=== PATIENT | male | born 1995 | race Caucasian/White ===

== ENCOUNTER 2016-09-22 15:26 | Observation (INO) | payer MEDICAID ==
--- NOTE | 2016-09-22 15:41 | EDPHY ---
H & P Stated Complaint: high creat/felt r/t lithium/stopped med/needs psych monitoring Time Seen by Provider: 09/22/16 15:41 - Personal History Current Tetanus/Diphtheria Vaccine: Yes - Medical/Surgical History Hx Asthma: No Hx Chronic Respiratory Disease: No Hx Diabetes: No Hx Cardiac Disease: No Hx Renal Disease: No Hx Cirrhosis: No Hx Alcoholism: No Hx HIV/AIDS: No Hx Splenectomy or Spleen Trauma: No Other PMH: psych/aspergers - Social History Smoking Status: Current every day smoker Constitutional: Initial Vital Signs Temperature (C) 36.8 C 09/22/16 15:36 Heart Rate 72 09/22/16 15:36 Respiratory Rate 17 09/22/16 15:36 Blood Pressure 117/78 09/22/16 15:36 O2 Sat (%) 97 09/22/16 15:36 O2 Delivery Mode Room Air Allergies/Adverse Reactions: No Known Allergies Allergy (Unverified 09/22/16 15:34) Home Medications: Medication Instructions Recorded Amiloride 09/22/16 GABAPENTIN 09/22/16 KLONOPIN 09/22/16 LaMICtal 09/22/16 Levothyroxine 09/22/16 Sertraline HCl 09/22/16 Medical Decision Making ED Course/Re-evaluation: CHIEF COMPLAINT: Kidney dysfunction secondary to lithium use. HISTORY OF PRESENT ILLNESS: This patient is a 21 year old male referred to the Emergency Department by Dr. Clarence Nelson, the patient's PCP, for concern of kidney dysfunction as evidenced in recent labs secondary to history of [place] use for treatment of suspected bipolar disorder. He stopped taking [place] yesterday and now reports anxiety and shortness of breath. He denies depression or any suicidal or homicidal ideation. He denies any urinary complaints. His current psychiatrist suspects that the patient does not actually have bipolar disorder and is therefore less concerned about possible exacerbation of psychiatric symptoms. Medical history also includes Asperger syndrome. REVIEW OF SYSTEMS: A 10 point review of systems was performed and is negative with the exception of the elements mentioned in the history of present illness. PHYSICAL EXAM: HR 72, BP 117/78, O2 Sat 97%, RR 17. Temp noted General Appearance: Alert, well hydrated, appropriate, and non-toxic appearing. Head: Atraumatic without scalp tenderness or obvious injury Eyes: Pupils equal, round, reactive to light and accommodation, EOMI, no trauma , no injection. Ears: Clear bilaterally, no perforation, normal landmarks Nose: Atraumatic, no rhinorrhea, clear. Throat: There is no erythema or exudates, no lesions, normal tonsils, mucus membranes moist. Neck: Supple, 2+ carotid upstroke, nontender, no lymphadenopathy. Respiratory: No retractions, no distress, no wheezes, and no accessory muscle use. Lungs are clear to auscultation bilaterally. Cardiovascular: Regular rate and rhythm, no murmurs, rubs, or gallops. Bilateral carotid, radial, dorsalis pedis, and posterior tibial pulses intact. Good capillary refill all extremities. Gastrointestinal: Abdomen is soft, nontender, non-distended, no masses, no rebound, no guarding, no peritoneal signs. Musculoskeletal: Normal active ROM of all extremities, atraumatic. Neurological: Alert, appropriate, and interactive. The patient has normal DTRs and non-focal cranial nerves, motor, sensory, and cerebellar exam. Skin: No rashes, good turgor, no nodules on palpation. Past medical history: Asperger syndrome. Suspected bipolar disorder. Past surgical history: Denies. Family history: Non-contributory. Social history: Mom and dad at bedside. DIFFERENTIAL DIAGNOSIS: Differential diagnosis for the patient's kidney dysfunction includes but is not limited to: lithium toxicity. MEDICAL DECISION MAKING: This patient's case was discussed with me by referring physician, Dr. Nelson, who reports evident kidney dysfunction indicated in labs obtained last week secondary to lithium use. Apparently, messages were left at home for approximately one week requesting that he abstain from lithium use but the patient just received these yesterday. He presents with complaints of anxiety but no additional concerns. Will proceed with labs to evaluate kidney function. Labs reviewed: Creatinine elevated at 2.4 Plan for admission. His electrolytes are normal. 170: Consultation with Dr. Conley, college admissions counselor, who recommends that the patient be admitted for kidney function monitoring and given 150ml IV NS every hour upon admission. I discussed this recommendation with the patient and his parents who are agreeable to this plan. 1717: Consultation with Dr. Nawaf Cain, hospitalist, who accepts admission to [facility]. - Data Points Laboratory Results: Laboratory Results 09/22/16 16:04 09/22/16 16:04 02/07/17 16:04 WBC 5.30 10^3/uL (3.80-9.50) RBC 3.78 L 10^6/uL (4.40-6.38) Hgb 11.6 L g/dL (13.7-17.5) Hct 32.4 L % (40.0-51.0) MCV 85.7 fL (81.5-99.8) MCH 30.7 pg (27.9-34.1) MCHC 35.8 g/dL (32.4-36.7) RDW 12.7 % (11.5-15.2) Plt Count 169 10^3/uL (150-400) MPV 11.1 fL (8.7-11.7) Neut % (Auto) 64.2 % (39.3-74.2) Lymph % (Auto) 25.3 % (15.0-45.0) Gentry % (Auto) 5.7 % (4.5-13.0) Eos % (Auto) 4.2 % (0.6-7.6) Baso % (Auto) 0.4 % (0.3-1.7) Nucleat RBC Rel Count 0.0 % (0.0-0.2) Absolute Neuts (auto) 3.41 10^3/uL (1.70-6.50) Absolute Lymphs (auto) 1.34 10^3/uL (1.00-3.00) Absolute Monos (auto) 0.30 10^3/uL (0.30-0.80) Absolute Eos (auto) 0.22 10^3/uL (0.03-0.40) Absolute Basos (auto) 0.02 10^3/uL (0.02-0.10) Absolute Nucleated RBC 0.00 10^3/uL (0-0.01) Immature Gran % 0.2 % (0.0-1.1) Immature Gran # 0.01 10^3/uL (0.00-0.10) Sodium 140 mEq/L (134-144) Potassium 4.3 mEq/L (3.5-5.2) Chloride 107 mEq/L (97-110) Carbon Dioxide 22 mEq/l (22-31) Anion Gap 11 mEq/L (8-16) BUN 26 H mg/dL (7-23) Creatinine 2.4 H mg/dL (0.7-1.3) Estimated GFR 34 Glucose 111 H mg/dL (70-100) Calcium 9.5 mg/dL (8.5-10.4) Total Bilirubin 0.4 mg/dL (0.1-1.4) Conjugated Bilirubin 0.4 mg/dL (0.0-0.5) Unconjugated Bilirubin 0.0 mg/dL (0.0-1.1) AST 19 IU/L (17-59) ALT 30 IU/L (21-72) Alkaline Phosphatase 104 IU/L (38-126) Total Protein 6.5 g/dL (6.3-8.2) Albumin 4.4 g/dL (3.5-5.0) Medications Given: Discontinued Medications Sodium Chloride (Ns) 1,000 mls @ 0 mls/hr IV ONCE ONE PRN Reason: Wide Open Stop: 09/22/16 15:49 Last Admin: 09/22/16 16:08 Dose: 1,000 mls Departure - Departure Disposition: [facility] Inpatient Acute Clinical Impression: Acute kidney injury Condition: Fair Referrals: CLARENCE NELSON [Primary Care Provider] - As per Instructions Report Scribed for: Javon Byrne Report Scribed by: April Lamas Date of Report: 09/22/16 Time of Report: 15:42
[2016-09-22] MEDS ORDERED: NS 1,000 ML IV ONE ×2 (15:48→17:38)
[2016-09-22 16:17] LABS: % IMMATURE GRANULYOCYTES 0.2 % (0.0-1.1); ABSOLUTE IMMATURE GRANULOCYTES 0.01 10^3/uL (0.00-0.10); ADD DIFF? NO; ADD MORPH? NO; ADD SCAN? NO; ATYPICAL LYMPHOCYTE FLAG 0 (0-99); FRAGMENT RBC FLAG 0 (0-99); HEMATOCRIT 32.4 % (40.0-51.0); HEMOGLOBIN 11.6 g/dL (13.7-17.5); LEFT SHIFT FLG 0 (0-99); LIPEMIA HEMOLYSIS FLAG 90 (0-99); MEAN CELL HEMOGLOBIN 30.7 pg (27.9-34.1); MEAN CELL HEMOGLOBIN CONCENTR. 35.8 g/dL (32.4-36.7); MEAN CELL VOLUME 85.7 fL (81.5-99.8); MEAN PLATELET VOLUME 11.1 fL (8.7-11.7); PLATELET CLUMPS FLAG 10 (0-99); PLATELET COUNT 169 10^3/uL (150-400); RED BLOOD CELL COUNT 3.78 10^6/uL (4.40-6.38); RED CELL DISTRIBUTION WIDTH 12.7 % (11.5-15.2)
[2016-09-22 16:29] LABS: ALANINE AMINOTRANSFERASE 30 IU/L (21-72); ALBUMIN 4.4 g/dL (3.5-5.0); ALKALINE PHOSPHATASE 104 IU/L (38-126); ANION GAP 11 mEq/L (8-16); ASPARTATE AMINOTRANSFERASE 19 IU/L (17-59); BILIRUBIN,TOTAL 0.4 mg/dL (0.1-1.4); BILIRUBIN-CONJUGATED 0.4 mg/dL (0.0-0.5); CALCIUM 9.5 mg/dL (8.5-10.4); CARBON DIOXIDE 22 mEq/l (22-31); CHLORIDE 107 mEq/L (97-110); CREATININE 2.4 mg/dL (0.7-1.3); GLOMERULAR FILTRATION RATE 34; GLUCOSE 111 mg/dL (70-100); POTASSIUM 4.3 mEq/L (3.5-5.2); SODIUM 140 mEq/L (134-144); TOTAL PROTEIN 6.5 g/dL (6.3-8.2)
[2016-09-22 17:44] VITALS: RESP 16
[2016-09-22 17:54] LABS: COLOR PALE YELLOW; LEUKOCYTE ESTERASE,URINE NEGATIVE (NEGATIVE); NITRITE,URINE NEGATIVE (NEGATIVE)
[2016-09-22] MEDS ORDERED: ONDANSETRON DISINTEGRATING 4 MG TAB PO PRN (18:07)
[2016-09-22] MEDS ORDERED: ACETAMINOPHEN 325 MG TAB PO PRN (18:07)
[2016-09-22] MEDS ORDERED: NS 1,000 ML IV SCH (18:15)
--- NOTE | 2016-09-22 18:57 | GHP ---
[f rep st] HISTORY AND PHYSICAL DATE OF ADMISSION: 09/22/2016 DATE OF EVALUATION: 09/22/2016 CHIEF COMPLAINT: Renal failure. HISTORY OF PRESENT ILLNESS: This is a 21-year-old man with autism and bipolar who presents with renal failure. He has been on lithium for years. Apparently his psychiatrist has been following his kidney function for some time. I reviewed his chart available from [facility] and creatinine was 1.9 back in December of 2015. Apparently he had labs drawn last week. Psychiatrist had been leaving messages for him to stop taking his lithium; however, he just got those 2 days ago. He has since quit, has missed his last 4 doses. He tells me that since he stopped taking lithium he has not been as thirsty. He has not been eating and drinking as well. He has still been urinating; however, somewhat less. He has a metallic taste in his mouth. He had plans for outpatient upper and lower endoscopy due to anemia. These are , at this point, being canceled by his mother. He has been seeing Dr. Hamm. Dr. Hamm, as an outpatient, had planned to do urine studies and get a renal ultrasound. He had been started on amiloride by Dr. Hamm. He has not actually started this and has not taken any of these doses yet. PAST MEDICAL/SURGICAL HISTORY: 1. Autism. 2. Bipolar. MEDICATIONS: Please see medication reconciliation. ALLERGIES: None. FAMILY HISTORY: No autism. SOCIAL HISTORY: Does not drink. He does smoke. He lives with his parents. REVIEW OF SYSTEMS: A 10-point review of systems is conducted and is negative except per HPI. PHYSICAL EXAM: VITAL SIGNS: Blood pressure 139/76, heart rate 66, respiration rate 16, saturating 96% on room air, temperature is 36.8. GENERAL: The patient is pleasant, slightly withdrawn man who is lying in bed, appears comfortable. HEENT: Shows him to be normocephalic, atraumatic. CARDIOVASCULAR : Regular rate and rhythm. No murmurs, rubs, or gallops. PULMONARY: Lungs clear bilaterally. ABDOMINAL: Soft, nontender. No hepatosplenomegaly. No masses appreciated. SKIN: No rash. : No Clark. NEUROLOGIC: Exam shows him to be alert and oriented x3. He is moving all extremities. PSYCHIATRIC: Exam shows him to have a blunted affect. LABS: Hemoglobin is 11.6, BUN is 26, creatinine is 2.4. LFTs are normal. Urinalysis is negative. DATA: 1. I discussed this with Dr. Nawaf Cain. I will admit him to the [facility]. 2. I reviewed his chart, including old records from [facility]. IMPRESSION AND PLAN: 1. Renal failure, suspected due to lithium. I will get a renal ultrasound. Check a random protein and creatinine. Check mag and phos. Dr. Hamm has been consulted and recommends IV hydration overnight and he will consult in the morning. 2. Psychiatric issues including autism and bipolar. Psychiatrist did not feel that he needed any mood stabilizing replacement once stopping the lithium. I offered a psychiatric consult here; however, his parents would prefer that he continue to follow with Dr. Gupta for this. He may at some point need a Psychiatric consult but I will hold off for now. 3. Anemia. He has outpatient upper and lower endoscopies planed. Will hold off on further workup at this point. /[id number]/MODL MTDD
[2016-09-22] MEDS ORDERED: clonazePAM 0.5 MG TAB PO PRN (19:11)
--- NOTE | 2016-09-22 20:22 | US ---
Ultrasound Abdomen Retroperitoneum, Complete Clinical Indications: Renal failure. Comparison: None. Findings: The right kidney measures 10.8 x 5.8 x 6.7 cm. The left kidney measures 10.9 x 3.4 x 5.1 cm. Both kidneys demonstrate no hydronephrosis, definite shadowing calculi, or perinephric fluid. R ight renal cortical thickness 1.1 cm and left renal cortical thickness 1 cm. Bilateral increased liane al cortical echogenicity when compared to the liver consistent with medical renal disease. Images of the bladder demonstrate patent bilateral ureteral jets with color flow imaging. Prevoid bl adder volume 316 mL. Postvoid bladder residual is 252 mL. No shadowing bladder calculi. Impression: 1. No hydronephrosis. 2. Bilateral medical renal disease, with increased cortical echogenicity. 3. Postvoid bladder residual of 252 mL.
[2016-09-22] MEDS ORDERED: LORazepam 0.5 MG TAB PO PRN (20:35)
[2016-09-22 20:49] LABS: LITHIUM 0.7 mEq/L (0.6-1.2); MAGNESIUM 1.9 mg/dL (1.6-2.3)
[2016-09-22] MEDS: ARIPiprazole 10 MG TAB PO SCH (20:50)
[2016-09-22] MEDS: GABAPENTIN 300 MG CAP PO SCH (20:50)
[2016-09-22] MEDS: lamoTRIgine 100 MG TAB PO SCH (20:51)
[2016-09-23] MEDS: LEVOTHYROXINE 25 MCG TAB PO SCH ×2 (06:09→09:29)
[2016-09-23 06:13] LABS: % IMMATURE GRANULYOCYTES 0.2 % (0.0-1.1); ABSOLUTE IMMATURE GRANULOCYTES 0.01 10^3/uL (0.00-0.10); ADD DIFF? NO; ADD MORPH? NO; ADD SCAN? NO; ATYPICAL LYMPHOCYTE FLAG 0 (0-99); FRAGMENT RBC FLAG 0 (0-99); HEMATOCRIT 31.6 % (40.0-51.0); HEMOGLOBIN 10.8 g/dL (13.7-17.5); LEFT SHIFT FLG 0 (0-99); LIPEMIA HEMOLYSIS FLAG 90 (0-99); MEAN CELL HEMOGLOBIN 30.7 pg (27.9-34.1); MEAN CELL HEMOGLOBIN CONCENTR. 34.2 g/dL (32.4-36.7); MEAN CELL VOLUME 89.8 fL (81.5-99.8); MEAN PLATELET VOLUME 10.9 fL (8.7-11.7); PLATELET CLUMPS FLAG 0 (0-99); PLATELET COUNT 149 10^3/uL (150-400); RED BLOOD CELL COUNT 3.52 10^6/uL (4.40-6.38); RED CELL DISTRIBUTION WIDTH 13.2 % (11.5-15.2)
[2016-09-23 07:30] LABS: ANION GAP 10 mEq/L (8-16); CALCIUM 9.2 mg/dL (8.5-10.4); CARBON DIOXIDE 20 mEq/l (22-31); CHLORIDE 113 mEq/L (97-110); CREATININE 2.2 mg/dL (0.7-1.3); GLOMERULAR FILTRATION RATE 38; GLUCOSE 98 mg/dL (70-100); POTASSIUM 4.6 mEq/L (3.5-5.2); SODIUM 143 mEq/L (134-144)
[2016-09-23] MEDS ORDERED: SERTRALINE HCL 100 MG TAB PO SCH (09:00)
[2016-09-23] MEDS ORDERED: SERTRALINE HCL 50 MG TAB PO SCH (09:00)
[2016-09-23] MEDS: GABAPENTIN 300 MG CAP PO SCH (09:27)
[2016-09-23] MEDS: lamoTRIgine 100 MG TAB PO SCH (09:27)
[2016-09-23] MEDS: ARIPiprazole 10 MG TAB PO SCH (09:28)
[2016-09-23 14:27] VITALS: BP 145/89; PULSE 56; TEMP 97.6; O2SAT 99
[2016-09-23 17:05] LABS: RANDOM URINE PROTEIN < 5 mg/dL
--- NOTE | 2016-09-23 21:37 | GDS ---
[f rep st] DISCHARGE SUMMARY DISCHARGE DIAGNOSES: 1. Acute kidney injury likely secondary to lithium. 2. Bipolar disorder. 3. Autism. CONSULTANTS: No formal consults were obtained. The case was discussed with the patient's nephrologi st who made recommendations. HISTORY: For details please see the dictated history and physical dated September 22, [address] Paul Cummings. In brief, the patient is a 21-year-old male with a history of autism and bipolar diso rder who presented to the hospital for admission when his outpatient labs revealed a rising creatinin e. He has been followed by Dr. Hamm from Nephrology in the outpatient setting. HOSPITAL COURSE: The patient was admitted to the Observation Unit. A renal ultrasound was performed . It was negative for hydronephrosis, but showed evidence of medical renal disease. A 24-hour urine was attempted, though the patient was unable to comply with this. He received aggressive IV fluid h ydration overnight and his creatinine improved from 2.4 to 2.2. The case was reviewed with the on-ca hair assistant who recommended the patient start on amiloride. This was previously prescribed in [facility] outpatient setting, but the patient had not started it. He was given a prescription for amiloride 5 mg daily at discharge and he will have weekly basic metabolic panels performed with results to Dr. Hamm with whom he will have close followup planned. The case was also discussed with his psychia trist on admission who did not recommend any different mood stabilizers in the absence of lithium. Lonnie stephen was found to have mild anemia with a hemoglobin of 11.6 and he does have outpatient upper and lower endoscopies planned, so we will defer this workup to the outpatient setting. DISPOSITION: Patient is discharged home in stable condition. FOLLOWUP: 1. Dr. Nina Beck, primary care. 2. Dr. Hamm, Nephrology. The patient has an appointment scheduled in 1 week. 3. Weekly basic metabolic panels are ordered with results to Dr. Hamm. DISCHARGE MEDICATIONS: Please see [employer] for completed, updated outpatient medication list. He was instructed to discontinue his lithium at discharge and a new prescription for amiloride at 5 m g p.o. daily (#30, no refills) was provided. /[id number]/MODL
== END 2016-09-23 14:34 | disposition home or self-care (01) ==
LOC: F1N 18:07
PROVIDERS: ADMIT Internal Medicine; ATTEND Student in an Organized Health Care Education/Training Program
DX: N17.9 Acute kidney failure, unspecified (principal); F84.5 Asperger's syndrome; F31.9 Bipolar disorder, unspecified; F41.9 Anxiety disorder, unspecified; D64.9 Anemia, unspecified; F17.200 Nicotine dependence, unspecified, uncomplicated
CPT/HCPCS: 76770; 96360; 99285; G0378